=== PATIENT | male | born 1980 | race Caucasian/White ===

== ENCOUNTER 2016-10-13 16:16 | Inpatient (IN) | payer OTHER ==
[2016-10-13 19:24] VITALS: BMI 117.6
--- NOTE | 2016-10-13 19:49 | HP ---
CIWA Score - CIWA Score Nausea/Vomitin-Mild Nausea/No Vomiting Muscle Tremors: 4-Moderate,w/Arms Extend Anxiety: 4-Mod. Anxious/Guarded Agitation: 4-Moderately Restless Paroxysmal Sweats: 2 Orientation: 1-Uncertain about Date Tacttile Disturbances: 0-None Auditory Disturbances: 0-None Visual Disturbances: 0-None Headache: 0-None Present CIWA-Ar Total Score: 16 Admission ROS BHS - HPI Chief Complaint: WITHDRAWAL SX LEFT LEG CHRONIC CELLULITIS, MULTIPLE TREATMENT WITH VANCROMYCINE CLINDAMYCIN HAD DOPLOR BOTH LEG NEGATIVE CLOT RECOMMEND FOLLOW UP WITH VASCULAR SPECIALIST, COMPRESSION SOCKS AND ELEVATION RESTING Allergies/Adverse Reactions: Allergies Allergy/AdvReac Type Severity Reaction Status Date / Time Penicillins Allergy Severe Verified 02/13/16 20:13 History of Present Illness: 36 YEARS OLD MALE WITH LONG HISTORY OF ALCOHOL NICOTINE DEPENDENCE HAD GERD AND ANXIETY IS ADMITTED TO DETOX Exam Limitations: No Limitations - Ebola screening Have you traveled outside of the country in the last 21 days: No Have you had contact with anyone from an Ebola affected area: No Have you been sick,other than usual withdrawal symptoms: No Do you have a fever: No - Review of Systems Constitutional: Chills, Changes in sleep EENT: reports: No Symptoms Reported Respiratory: reports: Cough Cardiac: reports: No Symptoms Reported GI: reports: Nausea, Poor Fluid Intake, Indigestion, Abdominal cramping : reports: No Symptoms Reported Musculoskeletal: reports: Joint Pain (RIGHT ANKLE S/P FX 2012) Integumentary: reports: Erythema (LEFT LOWER LEG) Neuro: reports: Tremors Endocrine: reports: No Symptoms Reported Hematology: reports: No Symptoms Reported Psychiatric: reports: Judgement Intact, Depressed Other Systems: Reviewed and Negative Patient History - Patient Medical History Hx Anemia: Yes (BY HISTORY) Hx Asthma: No Hx Chronic Obstructive Pulmonary Disease (COPD): No Hx Cancer: No Hx Cardiac Disorders: No Hx Congestive Heart Failure: No Hx Hypertension: No Hx Hypercholesterolemia: No Hx Pacemaker: No HX Cerebrovascular Accident: No Hx Seizures: No Hx Dementia: No Hx Diabetes: No Hx Gastrointestinal Disorders: Yes Hx Liver Disease: No Hx Genitourinary Disorders: No Hx Sexually Transmitted Disorders: No Hx Renal Disease (ESRD): No Hx Thyroid Disease: No Hx Human Immunodeficiency Virus (HIV): No (negative) Hx Hepatitis C: No Hx Depression: Yes Hx Suicide Attempt: No Hx Bipolar Disorder: No Hx Schizophrenia: No - Patient Surgical History Past Surgical History: Yes Hx Neurologic Surgery: No Hx Cataract Extraction: No Hx Cardiac Surgery: No Hx Lung Surgery: No Hx Breast Surgery: No Hx Breast Biopsy: No Hx Abdominal Surgery: No Hx Appendectomy: No Hx Cholecystectomy: No Hx Genitourinary Surgery: No Hx Orthopedic Surgery: Yes (surgery of left wrist in 2010) Other Surgical History: RIGHT ANKLE 2013 Anesthesia Reaction: No - PPD History Previous Implant?: Yes Documented Results: Negative w/proof Implanted On Prior R Admission?: Yes Date: 03/11/15 Results: 0MM PPD to be Administered?: Yes - Smoking Cessation Smoking history: Current every day smoker Have you smoked in the past 12 months: Yes Aproximately how many cigarettes per day: 10 Cigars Per Day: 0 Hx Chewing Tobacco Use: No Initiated information on smoking cessation: Yes 'Breaking Loose' booklet given: 10/13/16 - Substance & Tx. History Hx Alcohol Use: Yes Hx Substance Use: No Substance Use Type: Alcohol, Marijuana Hx Substance Use Treatment: Yes - Substances Abused Alcohol Route: Oral Frequency: Daily Amount used: 12OZ X 30 BEER Age of first use: 11 Date of Last Use: 10/13/16 Family Disease History - Family Disease History Family Disease History: Diabetes: Father, Heart Disease: Grandparent, Mother, [place] : Grandparent Admission Physical Exam S - Vital Signs Vital Signs: Vital Signs - 24 hr 10/13/16 19:23 Temperature 98.5 F Pulse Rate 112 H Respiratory 20 Rate Blood Pressure 159/104 - Physical General Appearance: Yes: Appropriately Dressed, Moderate Distress, Obese, Tremorous, Irritable, Sweating, Anxious HEENTM: Yes: Hearing grossly Normal, Normal ENT Inspection, Normocephalic, Normal Voice Respiratory: Yes: Chest Non-Tender, Lungs Clear, Normal Breath Sounds, No Respiratory Distress, No Accessory Muscle Use Neck: Yes: Supple, Trachea in good position Breast: Yes: Breasts Symetrical Cardiology: Yes: Regular Rhythm, S1, S2, Tachycardia Abdominal: Yes: Non Tender, Soft Genitourinary: Yes: Within Normal Limits Back: Yes: Normal Inspection Musculoskeletal: Yes: full range of Motion, Gait Steady, Joint swelling (LEFT CALF), Muscle Pain (RIGHT ANKLE + LEFT LOWER LEG) Extremities: Yes: Non-Tender, Tremors, Swelling (LEFT CALF) Neurological: Yes: Alert, Normal Response, Depressed Affect Integumentary: Yes: Warm, Erythema (LEFT LOWER LEG) Lymphatic: Yes: Within Normal Limits - Diagnostic (1) Alcohol dependence with uncomplicated withdrawal Current Visit: Yes Status: Acute (2) Nicotine dependence Current Visit: Yes Status: Acute Qualifiers: Nicotine product type: cigarettes Substance use status: in withdrawal Qualified Code(s): F17.213 - Nicotine dependence, cigarettes, with withdrawal (3) GERD (gastroesophageal reflux disease) Current Visit: Yes Status: Acute Qualifiers: Esophagitis presence: without esophagitis Qualified Code(s): K21.9 - Gastro-esophageal reflux disease without esophagitis (4) Anxiety and depression Current Visit: Yes Status: Suspected (5) Chronic cellulitis Current Visit: Yes Status: Chronic Comment: ELEVATION RESTING Cleared for Admission [facility] - Detox or Rehab [facility] Level of Care: Medically Managed Detox Regimen/Protocol: Librium S Breath Alcohol Content Breath Alcohol Content: 0 Vital Signs - Weight Weight: 292 lb Urine Drug Screen - Results Drug Screen Negative: No Urine Drug Screen Results: THC-Marijuana, BZO-Benzodiazepines
[2016-10-13] MEDS ORDERED: P-EPHED 60MG/TRIPROLIDI 2.5MG TABLET PO PRN (19:57)
[2016-10-13] MEDS ORDERED: LOPERAMIDE HCL 2 MG CAPSULE PO PRN (19:57)
[2016-10-13] MEDS ORDERED: chlordiazePOXIDE HCL 25 MG CAPSULE PO PRN (19:57)
[2016-10-13] MEDS ORDERED: chlordiazePOXIDE HCL 25 MG CAPSULE PO ONE (19:57)
[2016-10-13] MEDS ORDERED: MAGNESIUM HYDROX 2400MG/30ML ORAL SUSPENSION 30 ML CUP PO PRN (19:57)
[2016-10-13] MEDS ORDERED: NICOTINE POLACRILEX 2 MG GUM BC PRN (19:57)
[2016-10-13] MEDS ORDERED: MENTHOL/PHENOL 1 EACH UD MM PRN (19:57)
[2016-10-13] MEDS ORDERED: ACETAMINOPHEN 325 MG TABLET (FP) PO PRN (19:57)
[2016-10-13] MEDS ORDERED: MAG HYDROX/AL HYDROX/SIMETH 30 ML UNIT-DOSE CUP PO PRN (19:57)
[2016-10-13] MEDS ORDERED: hydrOXYzine PAMOATE 50 MG CAPSULE (FP) PO PRN (19:57)
[2016-10-13] MEDS ORDERED: MAGNESIUM CITRATE 300 ML BOTTLE PO PRN (19:57)
[2016-10-13] MEDS ORDERED: guaiFENesin/D-METHORPHAN HB 10 ML UNIT-DOSE CUPS PO PRN (19:57)
[2016-10-13] MEDS ORDERED: cloNIDine HCL 0.1 MG TABLET PO PRN (20:00)
[2016-10-13] MEDS ORDERED: CYCLOBENZAPRINE HCL 10 MG TABLET (FP) PO PRN (20:00)
[2016-10-13] MEDS: THIAMINE HCL 100 MG TABLET (FP) PO SCH (21:42)
[2016-10-13] MEDS: RANITIDINE HCL 150 MG TABLET (FP) PO SCH (21:42)
[2016-10-13] MEDS: diphenhydrAMINE HCL 50 MG CAPSULE PO PRN (21:47)
[2016-10-13] MEDS: chlordiazePOXIDE HCL 25 MG CAPSULE PO SCH (22:47)
[2016-10-13 23:12] LABS: URINE APPEARANCE CLEAR; URINE BILIRUBIN NEGATIVE (NEGATIVE); URINE BLOOD NEGATIVE (NEGATIVE); URINE COLOR LTYELLOW; URINE GLUCOSE (UA) NEGATIVE (NEGATIVE); URINE KETONE NEGATIVE (NEGATIVE); URINE LEUK ESTERASE NEGATIVE (NEGATIVE); URINE NITRITE NEGATIVE (NEGATIVE); URINE PROTEIN NEGATIVE (NEGATIVE); URINE UROBILINOGEN NEGATIVE E.U./dl (0.2-1.0)
[2016-10-14] MEDS: chlordiazePOXIDE HCL 25 MG CAPSULE PO SCH (06:48)
[2016-10-14] MEDS ORDERED: diazePAM 5 MG TABLET PO ONE (09:47)
--- NOTE | 2016-10-14 10:04 | PN ---
[facility] CIWA - CIWA Score Nausea/Vomitin-No Nausea/No Vomiting Muscle Tremors: 4-Moderate,w/Arms Extend Anxiety: 4-Mod. Anxious/Guarded Agitation: 4-Moderately Restless Paroxysmal Sweats: 2 Orientation: 0-Oriented Tacttile Disturbances: 3-Moderate Itch/Numb/Burn Auditory Disturbances: 0-None Visual Disturbances: 0-None Headache: 0-None Present CIWA-Ar Total Score: 17 BHS Progress Note (SOAP) Subjective: ANXIETY,SWEATS,TREMORS. DECLINED LIBRIUM DUE TO MOUTH IRRITATION FROM OPEN CAPSULE. PT HAS RECENT RX CLINDAMYCIN ON 10/13/16 FOR CHRONIC CELLULITIS OF LOWER LEG BUT DID NOT BRING IT HERE WITH HIM. Objective: 10/14/16 10:03 Vital Signs Temperature 96.2 F L 10/14/16 10:00 Pulse Rate 91 H 10/14/16 10:00 Respiratory Rate 18 10/14/16 10:00 Blood Pressure 155/96 10/14/16 10:00 O2 Sat by Pulse Oximetry (%) Laboratory Last Values Urine Color Ltyellow 10/13/16 22:50 Urine Appearance Clear 10/13/16 22:50 Urine pH 5.0 (5.0-8.0) 10/13/16 22:50 Ur Specific [place] 1.015 (1.001-1.035) 10/13/16 22:50 Urine Protein Negative (NEGATIVE) 10/13/16 22:50 Urine Glucose (UA) Negative (NEGATIVE) 10/13/16 22:50 Urine Ketones Negative (NEGATIVE) 10/13/16 22:50 Urine Blood Negative (NEGATIVE) 10/13/16 22:50 Urine Nitrite Negative (NEGATIVE) 10/13/16 22:50 Urine Bilirubin Negative (NEGATIVE) 10/13/16 22:50 Urine Urobilinogen Negative E.U./dl (0.2-1.0) 10/13/16 22:50 Ur Leukocyte Esterase Negative (NEGATIVE) 10/13/16 22:50 Assessment: 10/14/16 10:03 WITHDRAWAL SX Plan: CONTINUE DETOX CHANGE PROTOCOL TO VALIUM REGIMEN CONTINUE CLINDAMYCIN DIRECTED
[2016-10-14 10:37] LABS: MCH 27.9 pg (25.7-33.7); MCHC 33.2 g/dl (32.0-35.9); MEAN CELL VOLUME 84.1 fl (80-96); MEAN PLT VOLUME 8.6 fl (7.5-11.1); PLATELET COUNT 271 K/MM3 (134-434); RDW 13.6 % (11.9-15.9); WHITE BLOOD COUNT 4.7 K/mm3 (4.0-10.0)
[2016-10-14] MEDS: RANITIDINE HCL 150 MG TABLET (FP) PO SCH ×2 (10:42→22:30)
[2016-10-14] MEDS: PRENATAL VITAMINS W/ FOLIC ACID TABLET (FP) PO SCH (10:42)
[2016-10-14 10:44] LABS: ALBUMIN 3.1 g/dl (3.4-5.0); ALK PHOS 108 U/L (45-117); ANION GAP 8 (8-16); BILIRUBIN,TOTAL 0.5 mg/dL (0.2-1.0); CALCIUM 8.5 mg/dL (8.5-10.1); CO2 31 mmol/L (21-32); GLUCOSE,RANDOM 129 mg/dL (74-106); SGOT/AST 75 U/L (15-37); SGPT/ALT 109 U/L (12-78); TOT PROT 6.3 g/dl (6.4-8.2)
[2016-10-14] MEDS: NICOTINE 14 MG/24 HOURS TOPICAL PATCH TD SCH (10:45)
[2016-10-14 11:03] LABS: HIV 1 & 2 AB NEGATIVE; HIV 1 AGp24 NEGATIVE
--- NOTE | 2016-10-14 11:03 | CONSULT ---
[facility] Psychiatric Consult - Data Date of interview: 10/14/16 Admission source: [facility] Identifying data: Readmission to [facility] for this 36 y/o male seeking detox treatment on for detox treatment for alcohol, benzodiazepine (xanax) and marijuana dependence.Patient is single witout children,homeless,unemployed and aupported on food stamps. Substance Abuse History: - Smoking Cessation. Smoking history: Current every day smoker. Have you smoked in the past 12 months: Yes. Aproximately how many cigarettes per day: 10. Cigars Per Day: 0. Hx Chewing Tobacco Use: No. Initiated information on smoking cessation: Yes. 'Breaking Loose' booklet given : 10/13/16. - Substance & Tx. History. Hx Alcohol Use: Yes. Hx Substance Use : No. Substance Use Type: Alcohol, Marijuana. Hx Substance Use Treatment: Yes. - Substances Abused. Alcohol. Route: Oral. Frequency: Daily. Amount used: 12OZ X 30 BEER. Age of first use: 11. Date of Last Use: . Confirmed by patient in this session. Medical History: Obesity,GERD,cellulitis of left leg and anemia.History of surgery for fracture of left wrist (2009) and right ankle (2012).Noted self- report of an accidental overdose with heroin/alcohol about a year ago (nine days on the medical duffy).Patient reports allergy to Penicillin. Psychiatric History: Patient admits to one psychiatric hospitalization at the [facility] in [place] (2001).Diagnosed with Bipolar Disorder (patient disagrees).Mr Ledezma states that he stopped taking medications (gabapentin) immediately after his discharge.No history of OPD care.Patient denies history of suicide attempts.It appears that the patient's mother is diagnosed with Bipolar Disorder. Physical/Sexual Abuse/Trauma History: Patient denies. Additional Comment: Urine Drug Screen Results: THC-Marijuana, BZO- Benzodiazepines.Noted. Mental Status Exam - Mental Status Exam Alert and Oriented to: Time, Place, Person Cognitive Function: Good Patient Appearance: Well Groomed Mood: Hopeful, Euthymic Affect: Appropriate, Normal Range Patient Behavior: Fatigued, Appropriate, Cooperative Speech Pattern: Clear, Appropriate Voice Loudness: Normal Thought Process: Goal Oriented Thought Disorder: Not Present Hallucinations: Denies Suicidal Ideation: Denies Homicidal Ideation: Denies Insight/Judgement: Poor Sleep: Poorly, Difficulty falling asleep Appetite: Good Muscle strength/Tone: Normal Gait/Station: Normal Psychiatric Findings - Problem List ([place] 1, 2,3) (1) Alcohol dependence with uncomplicated withdrawal Current Visit: Yes Status: Acute (2) Cannabis dependence Current Visit: Yes Status: Acute (3) Nicotine dependence Current Visit: Yes Status: Acute Qualifiers: Nicotine product type: cigarettes Substance use status: in withdrawal Qualified Code(s): F17.213 - Nicotine dependence, cigarettes, with withdrawal (4) Chronic cellulitis Current Visit: Yes Status: Acute Comment: ELEVATION RESTING (5) 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
--- NOTE | 2016-10-14 11:06 | EKG ---
Test Reason : Blood Pressure : / mmHG Vent. Rate : 099 BPM Atrial Rate : 099 BPM P-R Int : 148 ms QRS Dur : 076 ms QT Int : 344 ms P-R-T Axes : 050 049 028 degrees QTc Int : 441 ms NORMAL SINUS RHYTHM POSSIBLE LEFT ATRIAL ENLARGEMENT BORDERLINE ECG NO PREVIOUS ECGS AVAILABLE Confirmed by GLO MURILLO, KHUSHI ([id number]) on 10/14/2016 11:06:33 AM Referred By: Edmond Lerner Confirmed By:KHUSHI CODY MD
[2016-10-14] MEDS: CLINDAMYCIN HCL 150 MG CAPSULE (FP) PO SCH ×2 (11:54→22:31)
[2016-10-14] MEDS: NAPROXEN 500 MG TABLET (FP) PO PRN ×2 (11:56→22:45)
[2016-10-14] MEDS: diazePAM 5 MG TABLET PO SCH ×2 (14:17→22:30)
[2016-10-14] MEDS: CYCLOBENZAPRINE HCL 10 MG TABLET (FP) PO SCH ×2 (14:18→22:30)
[2016-10-14] MEDS: THIAMINE HCL 100 MG TABLET (FP) PO SCH (22:30)
[2016-10-14] MEDS: diphenhydrAMINE HCL 50 MG CAPSULE PO PRN (22:31)
[2016-10-14] MEDS ORDERED: chlordiazePOXIDE HCL 25 MG CAPSULE PO SCH (23:00)
[2016-10-15] MEDS: diazePAM 5 MG TABLET PO SCH ×3 (06:13→22:15)
[2016-10-15] MEDS: CYCLOBENZAPRINE HCL 10 MG TABLET (FP) PO SCH ×3 (06:13→22:16)
[2016-10-15] MEDS: NAPROXEN 500 MG TABLET (FP) PO PRN ×2 (10:55→22:16)
[2016-10-15] MEDS: PRENATAL VITAMINS W/ FOLIC ACID TABLET (FP) PO SCH (10:55)
[2016-10-15] MEDS: diazePAM 5 MG TABLET PO PRN ×2 (10:55→18:28)
[2016-10-15] MEDS: RANITIDINE HCL 150 MG TABLET (FP) PO SCH ×2 (10:55→22:16)
[2016-10-15] MEDS: NICOTINE 14 MG/24 HOURS TOPICAL PATCH TD SCH (10:58)
[2016-10-15] MEDS: CLINDAMYCIN HCL 150 MG CAPSULE (FP) PO SCH ×2 (10:58→22:15)
--- NOTE | 2016-10-15 14:51 | PN ---
S CIWA - CIWA Score Nausea/Vomitin-No Nausea/No Vomiting Muscle Tremors: 4-Moderate,w/Arms Extend Anxiety: 4-Mod. Anxious/Guarded Agitation: 3 Paroxysmal Sweats: 3 Orientation: 0-Oriented Tacttile Disturbances: 0-None Auditory Disturbances: 0-None Visual Disturbances: 0-None Headache: 0-None Present CIWA-Ar Total Score: 14 BHS Progress Note (SOAP) Subjective: Anxiety,tremors,sweating,interrupted sleep,restless. Objective: 10/15/16 14:50 Vital Signs - 8 hr 10/15/16 10/15/16 10:54 13:27 Temperature 97.6 F 96.9 F L Pulse Rate 73 92 H Respiratory 18 18 Rate Blood Pressure 135/91 137/83 Laboratory Tests 10/13/16 10/13/16 10/14/16 07:00 22:50 07:00 WBC 4.7 D RBC 4.30 Hgb 12.0 D Hct 36.2 D MCV 84.1 MCHC 33.2 RDW 13.6 Plt Count 271 MPV 8.6 Sodium Potassium Chloride Carbon Dioxide Anion Gap BUN Creatinine Creat Clearance w eGFR Random Glucose Calcium Total Bilirubin AST ALT Alkaline Phosphatase Total Protein Albumin Urine Color Ltyellow Urine Appearance Clear Urine pH 5.0 Ur Specific [place] 1.015 Urine Protein Negative Urine Glucose (UA) Negative Urine Ketones Negative Urine Blood Negative Urine Nitrite Negative Urine Bilirubin Negative Urine Urobilinogen Negative Ur Leukocyte Esterase Negative RPR Titer Hepatitis C Antibody <0.1 HIV 1&2 Antibody Screen HIV P24 Antigen 10/14/16 10/14/16 10/14/16 07:00 07:00 07:00 WBC RBC Hgb Hct MCV MCHC RDW Plt Count MPV Sodium 143 Potassium 3.8 Chloride 104 Carbon Dioxide 31 D Anion Gap 8 BUN 10 D Creatinine 1.0 Creat Clearance w eGFR > 60 Random Glucose 129 H Calcium 8.5 Total Bilirubin 0.5 D AST 75 H D ALT 109 H Alkaline Phosphatase 108 Total Protein 6.3 L Albumin 3.1 L Urine Color Urine Appearance Urine pH Ur Specific [place] Urine Protein Urine Glucose (UA) Urine Ketones Urine Blood Urine Nitrite Urine Bilirubin Urine Urobilinogen Ur Leukocyte Esterase RPR Titer Nonreactive Hepatitis C Antibody HIV 1&2 Antibody Screen Negative HIV P24 Antigen Negative labs noted Assessment: 10/15/16 14:50 Withdrawal sx. Plan: Continue detox
[2016-10-15] MEDS ORDERED: ZOLPIDEM TARTRATE 10 MG TABLET (PARK CARE ONLY) PO PRN (22:00)
[2016-10-15] MEDS: THIAMINE HCL 100 MG TABLET (FP) PO SCH (22:15)
[2016-10-15] MEDS ORDERED: chlordiazePOXIDE 5 MG CAPSULE PO SCH (23:00)
[2016-10-16] MEDS: CYCLOBENZAPRINE HCL 10 MG TABLET (FP) PO SCH ×2 (05:23→06:42)
[2016-10-16] MEDS: diazePAM 5 MG TABLET PO PRN (06:41)
[2016-10-16] MEDS ORDERED: diazePAM 5 MG TABLET PO SCH (10:00)
[2016-10-16] MEDS: CLINDAMYCIN HCL 150 MG CAPSULE (FP) PO SCH (10:45)
--- NOTE | 2016-10-16 10:45 | PN ---
BHS Progress Note (SOAP) Subjective: Sweating,interrupted sleep,restless Objective: 10/16/16 10:44 Vital Signs - 8 hr 10/16/16 10/16/16 03:30 07:05 Temperature 97.2 F L Pulse Rate 84 Respiratory 18 20 Rate Blood Pressure 103/64 Laboratory Last Values WBC 4.7 K/mm3 (4.0-10.0) D 10/14/16 07:00 RBC 4.30 M/mm3 (4.00-5.60) 10/14/16 07:00 Hgb 12.0 GM/dL (11.7-16.9) D 10/14/16 07:00 Hct 36.2 % (35.4-49) D 10/14/16 07:00 MCV 84.1 fl (80-96) 10/14/16 07:00 MCHC 33.2 g/dl (32.0-35.9) 10/14/16 07:00 RDW 13.6 % (11.9-15.9) 10/14/16 07:00 Plt Count 271 K/MM3 (134-434) 10/14/16 07:00 MPV 8.6 fl (7.5-11.1) 10/14/16 07:00 Sodium 143 mmol/L (136-145) 10/14/16 07:00 Potassium 3.8 mmol/L (3.5-5.1) 10/14/16 07:00 Chloride 104 mmol/L (98-107) 10/14/16 07:00 Carbon Dioxide 31 mmol/L (21-32) D 10/14/16 07:00 Anion Gap 8 (8-16) 10/14/16 07:00 BUN 10 mg/dL (7-18) D 10/14/16 07:00 Creatinine 1.0 mg/dL (0.7-1.3) 10/14/16 07:00 Creat Clearance w eGFR > 60 (>60) 10/14/16 07:00 Random Glucose 129 mg/dL (74-106) H 10/14/16 07:00 Calcium 8.5 mg/dL (8.5-10.1) 10/14/16 07:00 Total Bilirubin 0.5 mg/dL (0.2-1.0) D 10/14/16 07:00 AST 75 U/L (15-37) H D 10/14/16 07:00 ALT 109 U/L (12-78) H 10/14/16 07:00 Alkaline Phosphatase 108 U/L (45-117) 10/14/16 07:00 Total Protein 6.3 g/dl (6.4-8.2) L 10/14/16 07:00 Albumin 3.1 g/dl (3.4-5.0) L 10/14/16 07:00 Urine Color Ltyellow 10/13/16 22:50 Urine Appearance Clear 10/13/16 22:50 Urine pH 5.0 (5.0-8.0) 10/13/16 22:50 Ur Specific [place] 1.015 (1.001-1.035) 10/13/16 22:50 Urine Protein Negative (NEGATIVE) 10/13/16 22:50 Urine Glucose (UA) Negative (NEGATIVE) 10/13/16 22:50 Urine Ketones Negative (NEGATIVE) 10/13/16 22:50 Urine Blood Negative (NEGATIVE) 10/13/16 22:50 Urine Nitrite Negative (NEGATIVE) 10/13/16 22:50 Urine Bilirubin Negative (NEGATIVE) 10/13/16 22:50 Urine Urobilinogen Negative E.U./dl (0.2-1.0) 10/13/16 22:50 Ur Leukocyte Esterase Negative (NEGATIVE) 10/13/16 22:50 RPR Titer Nonreactive (NONREACTIVE) 10/14/16 07:00 Hepatitis C Antibody <0.1 s/co ratio (0.0-0.9) 10/13/16 07:00 HIV 1&2 Antibody Screen Negative 10/14/16 07:00 HIV P24 Antigen Negative 10/14/16 07:00 labs noted Assessment: 10/16/16 10:44 Withdrawal sx. Plan: Continue detox
[2016-10-16] MEDS: RANITIDINE HCL 150 MG TABLET (FP) PO SCH (10:46)
[2016-10-16] MEDS: PRENATAL VITAMINS W/ FOLIC ACID TABLET (FP) PO SCH (10:46)
[2016-10-16] MEDS: NICOTINE 14 MG/24 HOURS TOPICAL PATCH TD SCH (10:46)
[2016-10-16 10:56] VITALS: BP 134/83; PULSE 90; TEMP 90
--- NOTE | 2016-10-16 15:14 | DS ---
[facility] Detox Discharge Summary Admission Date: 10/13/16 Discharge Date: 10/16/16 - History Present History: Alcohol Dependence, Cannabis Dependence Pertinent Past History: GERD Chronic Cellulitis - Physical Exam Results Vital Signs: Vital Signs Temperature 90 F L 10/16/16 10:56 Pulse Rate 90 10/16/16 10:56 Respiratory Rate 20 10/16/16 10:56 Blood Pressure 134/83 10/16/16 10:56 O2 Sat by Pulse Oximetry (%) Pertinent Admission Physical Exam Findings: Withdrawal sx. Laboratory Last Values WBC 4.7 K/mm3 (4.0-10.0) D 10/14/16 07:00 RBC 4.30 M/mm3 (4.00-5.60) 10/14/16 07:00 Hgb 12.0 GM/dL (11.7-16.9) D 10/14/16 07:00 Hct 36.2 % (35.4-49) D 10/14/16 07:00 MCV 84.1 fl (80-96) 10/14/16 07:00 MCHC 33.2 g/dl (32.0-35.9) 10/14/16 07:00 RDW 13.6 % (11.9-15.9) 10/14/16 07:00 Plt Count 271 K/MM3 (134-434) 10/14/16 07:00 MPV 8.6 fl (7.5-11.1) 10/14/16 07:00 Sodium 143 mmol/L (136-145) 10/14/16 07:00 Potassium 3.8 mmol/L (3.5-5.1) 10/14/16 07:00 Chloride 104 mmol/L (98-107) 10/14/16 07:00 Carbon Dioxide 31 mmol/L (21-32) D 10/14/16 07:00 Anion Gap 8 (8-16) 10/14/16 07:00 BUN 10 mg/dL (7-18) D 10/14/16 07:00 Creatinine 1.0 mg/dL (0.7-1.3) 10/14/16 07:00 Creat Clearance w eGFR > 60 (>60) 10/14/16 07:00 Random Glucose 129 mg/dL (74-106) H 10/14/16 07:00 Calcium 8.5 mg/dL (8.5-10.1) 10/14/16 07:00 Total Bilirubin 0.5 mg/dL (0.2-1.0) D 10/14/16 07:00 AST 75 U/L (15-37) H D 10/14/16 07:00 ALT 109 U/L (12-78) H 10/14/16 07:00 Alkaline Phosphatase 108 U/L (45-117) 10/14/16 07:00 Total Protein 6.3 g/dl (6.4-8.2) L 10/14/16 07:00 Albumin 3.1 g/dl (3.4-5.0) L 10/14/16 07:00 Urine Color Ltyellow 10/13/16 22:50 Urine Appearance Clear 10/13/16 22:50 Urine pH 5.0 (5.0-8.0) 10/13/16 22:50 Ur Specific [place] 1.015 (1.001-1.035) 10/13/16 22:50 Urine Protein Negative (NEGATIVE) 10/13/16 22:50 Urine Glucose (UA) Negative (NEGATIVE) 10/13/16 22:50 Urine Ketones Negative (NEGATIVE) 10/13/16 22:50 Urine Blood Negative (NEGATIVE) 10/13/16 22:50 Urine Nitrite Negative (NEGATIVE) 10/13/16 22:50 Urine Bilirubin Negative (NEGATIVE) 10/13/16 22:50 Urine Urobilinogen Negative E.U./dl (0.2-1.0) 10/13/16 22:50 Ur Leukocyte Esterase Negative (NEGATIVE) 10/13/16 22:50 RPR Titer Nonreactive (NONREACTIVE) 10/14/16 07:00 Hepatitis C Antibody <0.1 s/co ratio (0.0-0.9) 10/13/16 07:00 HIV 1&2 Antibody Screen Negative 10/14/16 07:00 HIV P24 Antigen Negative 10/14/16 07:00 labs noted - Treatment Hospital Course: Rehab Referral Accepted Patient has Accepted a Rehab Referral to: [facility] addiction treatment [place], [place] - Medication Discharge Medications: Ambulatory Orders Clindamycin HCl 600 mg PO BID 10/14/16 - Diagnosis (1) Alcohol dependence with uncomplicated withdrawal Status: Acute (2) Cannabis dependence Status: Acute (3) Chronic cellulitis Status: Acute (4) Nicotine dependence Status: Acute Qualifiers: Nicotine product type: cigarettes Substance use status: in withdrawal Qualified Code(s): F17.213 - Nicotine dependence, cigarettes, with withdrawal (5) GERD (gastroesophageal reflux disease) Status: Chronic Qualifiers: Esophagitis presence: without esophagitis Qualified Code(s): K21.9 - Gastro-esophageal reflux disease without esophagitis - AMA Did Patient Leave Against Medical Advice: Yes
[2016-10-16] MEDS ORDERED: chlordiazePOXIDE HCL 10 MG CAPSULE PO SCH (23:00)
[2016-10-18] MEDS ORDERED: diazePAM 5 MG TABLET PO SCH (10:00)
== END 2016-10-16 12:10 | disposition left against medical advice (07) | DRG 770 ==
LOC: YASAS 16:16 → Y3N 20:52
PROVIDERS: ADMIT Internal Medicine; ATTEND Internal Medicine
PROC: HZ2ZZZZ Detoxification Services for Substance Abuse Treatment (ICD-10-PCS; principal; 2016-10-16)
DX: F10.230 Alcohol dependence with withdrawal, uncomplicated (principal); F12.20 Cannabis dependence, uncomplicated; F17.213 Nicotine dependence, cigarettes, with withdrawal; F41.8 Other specified anxiety disorders; L03.116 Cellulitis of left lower limb
CPT/HCPCS: 36415; 80053; 81003; 85027; 86593; 87389; 93005; 93010

== ENCOUNTER 2016-11-26 13:27 | Inpatient (IN) | payer OTHER ==
[2016-11-26 14:07] VITALS: BMI 38.5
--- NOTE | 2016-11-26 16:17 | HP ---
CIWA Score - CIWA Score Nausea/Vomitin Muscle Tremors: 4-Moderate,w/Arms Extend Anxiety: 4-Mod. Anxious/Guarded Agitation: 4-Moderately Restless Paroxysmal Sweats: 3 Orientation: 1-Uncertain about Date Tacttile Disturbances: 0-None Auditory Disturbances: 0-None Visual Disturbances: 0-None Headache: 0-None Present CIWA-Ar Total Score: 19 Admission ROS BHS - HPI Chief Complaint: Withdrawal sx. Allergies/Adverse Reactions: Allergies Allergy/AdvReac Type Severity Reaction Status Date / Time Penicillins Allergy Severe Hives Verified 10/13/16 21:13 History of Present Illness: 36 y/o man with a long hx of drug & alcohol dependence is admitted for detox.Pt. has been in previous detox,reports two yrs. sobriety.Recently enrolled in [facility]. Exam Limitations: No Limitations - Ebola screening Have you traveled outside of the country in the last 21 days: No Have you had contact with anyone from an Ebola affected area: No Have you been sick,other than usual withdrawal symptoms: No Do you have a fever: No - Review of Systems Constitutional: Diaphoresis EENT: reports: No Symptoms Reported Respiratory: reports: No Symptoms reported Cardiac: reports: No Symptoms Reported GI: reports: Diarrhea, Abdominal cramping : reports: No Symptoms Reported Musculoskeletal: reports: No Symptoms Reported Integumentary: reports: Sweating Neuro: reports: Tremors Endocrine: reports: No Symptoms Reported Hematology: reports: No Symptoms Reported Psychiatric: reports: No Sypmtoms Reported Other Systems: Reviewed and Negative Patient History - Patient Medical History Hx Anemia: Yes (BY HISTORY) Hx Asthma: No Hx Chronic Obstructive Pulmonary Disease (COPD): No Hx Cancer: No Hx Cardiac Disorders: No Hx Congestive Heart Failure: No Hx Hypertension: No Hx Hypercholesterolemia: No Hx Pacemaker: No HX Cerebrovascular Accident: No Hx Seizures: No Hx Dementia: No Hx Diabetes: No Hx Gastrointestinal Disorders: No Hx Liver Disease: No Hx Genitourinary Disorders: No Hx Sexually Transmitted Disorders: No Hx Renal Disease (ESRD): No Hx Thyroid Disease: No Hx Human Immunodeficiency Virus (HIV): No (negative) Hx Hepatitis C: No Hx Depression: No Hx Suicide Attempt: No Hx Bipolar Disorder: No Hx Schizophrenia: No Other Medical History: 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 - Patient Surgical History Past Surgical History: Yes Hx Neurologic Surgery: No Hx Cataract Extraction: No Hx Cardiac Surgery: No Hx Lung Surgery: No Hx Breast Surgery: No Hx Breast Biopsy: No Hx Abdominal Surgery: No Hx Appendectomy: No Hx Cholecystectomy: No Hx Genitourinary Surgery: No Hx Section: No Hx Orthopedic Surgery: Yes (surgery of left wrist in 2010) Other Surgical History: Fracture RIGHT ANKLE Anesthesia Reaction: No - PPD History Previous Implant?: Yes Documented Results: Negative w/proof Implanted On Prior [facility] Admission?: Yes Date: 10/15/16 Results: 0MM PPD to be Administered?: No - Smoking Cessation Smoking history: Current every day smoker Have you smoked in the past 12 months: Yes Aproximately how many cigarettes per day: 10 Cigars Per Day: 0 Hx Chewing Tobacco Use: No Initiated information on smoking cessation: Yes 'Breaking Loose' booklet given: 11/26/16 - Substance & Tx. History Hx Alcohol Use: Yes Hx Substance Use: Yes Substance Use Type: Alcohol, Tranquilizers Hx Substance Use Treatment: Yes (detox & rehab) - Substances Abused Alcohol Route: Oral Frequency: Daily Amount used: Beer 4-5(6packs) Age of first use: 11 Date of Last Use: 11/26/16 Alprazolam (Xanax) Route: Oral Frequency: Daily Amount used: 10mg Age of first use: 21 Date of Last Use: 11/25/16 Family Disease History - Family Disease History Family Disease History: Diabetes: Father, Heart Disease: Grandparent, Mother, CA : Grandparent Admission Physical Exam BHS - Vital Signs Vital Signs: Vital Signs - 24 hr 11/26/16 14:04 Temperature 98.6 F Pulse Rate 110 H Respiratory 18 Rate Blood Pressure 169/98 - Physical General Appearance: Yes: Tremorous, Sweating, Anxious HEENTM: Yes: Within Normal Limits Respiratory: Yes: Chest Non-Tender, Lungs Clear, Normal Breath Sounds Neck: Yes: Supple Breast: Yes: Breast Exam Deferred Cardiology: Yes: Regular Rhythm, Regular Rate, S1, S2 Abdominal: Yes: Normal Bowel Sounds, Non Tender, Soft Genitourinary: Yes: Within Normal Limits Back: Yes: Within Normal Limits Musculoskeletal: Yes: Joint swelling (Deformity Rt. ankle with chronic skin changes left ankle) Extremities: Yes: Tremors, Swelling (deformity rt. ankle,old fracture not properly treated), Erythema (both ankles) Neurological: Yes: Fully Oriented, Alert Integumentary: Yes: Diaphoresis Lymphatic: Yes: Within Normal Limits - Diagnostic (1) Alcohol dependence with uncomplicated withdrawal Current Visit: Yes Status: Acute (2) Cannabis dependence Current Visit: Yes Status: Acute (3) Nicotine dependence Current Visit: Yes Status: Acute Qualifiers: Nicotine product type: cigarettes Substance use status: in withdrawal Qualified Code(s): F17.213 - Nicotine dependence, cigarettes, with withdrawal (4) GERD (gastroesophageal reflux disease) Current Visit: Yes Status: Chronic Qualifiers: Esophagitis presence: without esophagitis Qualified Code(s): K21.9 - Gastro-esophageal reflux disease without esophagitis (5) Right ankle joint deformity Current Visit: Yes Status: Chronic (6) Opioid dependence on agonist therapy Current Visit: Yes Status: Acute Cleared for Admission S - Detox or Rehab [facility] Level of Care: Medically Managed Detox Regimen/Protocol: Valium S Breath Alcohol Content Breath Alcohol Content: 0 Urine Drug Screen - Results Drug Screen Negative: No Urine Drug Screen Results: THC-Marijuana, BAR-Barbiturates, BZO-Benzodiazepines , MTD-Methadone, TCA-Tricyclic Antidepress
[2016-11-26] MEDS ORDERED: P-EPHED 60MG/TRIPROLIDI 2.5MG TABLET PO PRN (16:32)
[2016-11-26] MEDS ORDERED: NICOTINE POLACRILEX 2 MG GUM BC PRN (16:32)
[2016-11-26] MEDS ORDERED: diphenhydrAMINE HCL 50 MG CAPSULE PO PRN (16:32)
[2016-11-26] MEDS ORDERED: MAGNESIUM CITRATE 300 ML BOTTLE PO PRN (16:32)
[2016-11-26] MEDS ORDERED: guaiFENesin/D-METHORPHAN HB 10 ML UNIT-DOSE CUPS PO PRN (16:32)
[2016-11-26] MEDS ORDERED: MENTHOL/PHENOL 1 EACH UD MM PRN (16:32)
[2016-11-26] MEDS ORDERED: LOPERAMIDE HCL 2 MG CAPSULE PO PRN (16:32)
[2016-11-26] MEDS ORDERED: MAGNESIUM HYDROX 2400MG/30ML ORAL SUSPENSION 30 ML CUP PO PRN (16:32)
[2016-11-26] MEDS ORDERED: MAG HYDROX/AL HYDROX/SIMETH 30 ML UNIT-DOSE CUP PO PRN (16:32)
[2016-11-26] MEDS ORDERED: ACETAMINOPHEN 325 MG TABLET (FP) PO PRN (16:32)
[2016-11-26] MEDS ORDERED: diazePAM 5 MG TABLET PO ONE (17:45)
[2016-11-26] MEDS: NICOTINE 21 MG/24 HOURS TOPICAL PATCH TD SCH (19:09)
[2016-11-26] MEDS: THIAMINE HCL 100 MG TABLET (FP) PO SCH (22:35)
[2016-11-26] MEDS: diazePAM 5 MG TABLET PO SCH (22:35)
[2016-11-26] MEDS: TOLNAFTATE 1% CREAM 15 GM TUBE TP SCH (22:50)
[2016-11-27] MEDS: diazePAM 5 MG TABLET PO SCH ×3 (05:47→22:33)
--- NOTE | 2016-11-27 08:30 | CONSULT ---
[facility] Psychiatric Consult - Data Date of interview: 11/27/16 Admission source: [facility] Identifying data: This is 36 years opld obese male with no psychiatric hospitalization history intoxiocated wuth: Alcohol, Cannabis, Xanax, Opioids and Nicotine Substance Abuse History: - Smoking Cessation. Smoking history: Current every day smoker. Have you smoked in the past 12 months: Yes. Aproximately how many cigarettes per day: 10. Cigars Per Day: 0. Hx Chewing Tobacco Use: No. Initiated information on smoking cessation: Yes. 'Breaking Loose' booklet given : 11/26/16. - Substance & Tx. History. Hx Alcohol Use: Yes. Hx Substance Use : Yes. Substance Use Type: Alcohol, Tranquilizers. Hx Substance Use Treatment : Yes (detox & rehab). - Substances Abused. Alcohol. Route: Oral. Frequency: Daily. Amount used: Beer 4-5(6packs). Age of first use: 11. Date of Last Use: 11/26/16. Alprazolam (Xanax). Route: Oral. Frequency: Daily. Amount used: 10mg. Age of first use: 21. Date of Last Use: 11/25/16 Medical History: GERD, Right ankle injury, History of Cellulitis. Obesity Psychiatric History: Patient reports history of anxiety and depression, reports insomnia, reports taking prior to admission: Ambien 10mg po qhs Physical/Sexual Abuse/Trauma History: Denies Additional Comment: Ambien 10mg po qhs Mental Status Exam - Mental Status Exam Alert and Oriented to: Person Cognitive Function: Fair Patient Appearance: Unkempt Mood: Sad Patient Behavior: Cooperative Speech Pattern: Appropriate Voice Loudness: Normal Thought Process: Circumstantial, Goal Oriented Thought Disorder: Being Controlled Hallucinations: Denies Suicidal Ideation: Denies Homicidal Ideation: Denies Insight/Judgement: Fair Sleep: Difficulty falling asleep Appetite: Weight gain Muscle strength/Tone: Mild Hypotonicity Gait/Station: Normal Additional Comments: Ambien 10mg po qhs Psychiatric Findings - Problem List ([place] 1, 2,3) (1) Alcohol dependence with uncomplicated withdrawal Current Visit: Yes Status: Acute (2) Cannabis dependence Current Visit: Yes Status: Acute (3) Nicotine dependence Current Visit: Yes Status: Acute Qualifiers: Nicotine product type: cigarettes Substance use status: in withdrawal Qualified Code(s): F17.213 - Nicotine dependence, cigarettes, with withdrawal (4) Opioid dependence on agonist therapy Current Visit: Yes Status: Acute (5) Alcohol dependence Current Visit: No Status: Chronic (6) Heroin dependence Current Visit: No Status: Chronic (7) Anxiety and depression Current Visit: No Status: Suspected (8) Drug-induced mood disorder Current Visit: Yes Status: Acute - Initial Treatment Plan Initial Treatment Plan: Ambien 10mg po qhs
[2016-11-27] MEDS ORDERED: METHADONE HCL 10 MG TABLET PO ONE (10:02)
[2016-11-27] MEDS ORDERED: METHADONE 40 MG, METHADONE 10 MG PO ONE (10:30)
[2016-11-27] MEDS: diazePAM 5 MG TABLET PO PRN ×2 (10:39→20:18)
[2016-11-27] MEDS: PRENATAL VITAMINS W/ FOLIC ACID TABLET (FP) PO SCH (10:39)
[2016-11-27] MEDS: TOLNAFTATE 1% CREAM 15 GM TUBE TP SCH ×2 (10:39→22:35)
[2016-11-27] MEDS: NICOTINE 21 MG/24 HOURS TOPICAL PATCH TD SCH (10:40)
[2016-11-27] MEDS ORDERED: METHADONE HCL 10 MG TABLET ONE (10:41)
[2016-11-27] MEDS ORDERED: METHADONE HCL 40 MG DISPERSABLE TABLET ONE (10:41)
[2016-11-27 10:51] LABS: ALBUMIN 3.7 g/dl (3.4-5.0); ANION GAP 9 (8-16); CO2 29 mmol/L (21-32); GLUCOSE,RANDOM 150 mg/dL (74-106)
[2016-11-27 10:53] LABS: ALK PHOS 131 U/L (45-117); BILIRUBIN,TOTAL 0.6 mg/dL (0.2-1.0); COCKROFT - GAULT 170.57; CREATININE 1.1 mg/dL (0.7-1.3); SGOT/AST 57 U/L (15-37); SGPT/ALT 64 U/L (12-78); TOT PROT 7.5 g/dl (6.4-8.2)
[2016-11-27 10:55] LABS: MCH 26.9 pg (25.7-33.7); MCHC 33.9 g/dl (32.0-35.9); MEAN CELL VOLUME 79.4 fl (80-96); MEAN PLT VOLUME 8.9 fl (7.5-11.1); PLATELET COUNT 263 K/MM3 (134-434); WHITE BLOOD COUNT 5.3 K/mm3 (4.0-10.0)
--- NOTE | 2016-11-27 11:14 | PN ---
S CIWA - CIWA Score Nausea/Vomitin Muscle Tremors: 3 Anxiety: 3 Agitation: 3 Paroxysmal Sweats: 1-Minimal Palms Moist Orientation: 0-Oriented Tacttile Disturbances: 1-Very Mild Itch/Numbness Auditory Disturbances: 1-Very Mild Visual Disturbances: 1-Very Mild Sensitivity Headache: 2-Mild CIWA-Ar Total Score: 18 BHS Progress Note (SOAP) Subjective: ALERT,IRRITABLE,ANXIOUS,INTERRUPTED SLEEP,TREMOR,PAIN IN THE BODY Objective: 11/27/16 11:06 Vital Signs Temperature 97.3 F L 11/27/16 09:51 Pulse Rate 82 11/27/16 09:51 Respiratory Rate 16 11/27/16 09:51 Blood Pressure 133/94 11/27/16 09:51 O2 Sat by Pulse Oximetry (%) Laboratory Last Values WBC 5.3 K/mm3 (4.0-10.0) 11/27/16 06:00 RBC 4.68 M/mm3 (4.00-5.60) 11/27/16 06:00 Hgb 12.6 GM/dL (11.7-16.9) 11/27/16 06:00 Hct 37.2 % (35.4-49) 11/27/16 06:00 MCV 79.4 fl (80-96) L 11/27/16 06:00 MCHC 33.9 g/dl (32.0-35.9) 11/27/16 06:00 RDW 14.0 % (11.9-15.9) 11/27/16 06:00 Plt Count 263 K/MM3 (134-434) 11/27/16 06:00 MPV 8.9 fl (7.5-11.1) 11/27/16 06:00 Sodium 138 mmol/L (136-145) 11/27/16 06:00 Potassium 3.8 mmol/L (3.5-5.1) 11/27/16 06:00 Chloride 100 mmol/L (98-107) 11/27/16 06:00 Carbon Dioxide 29 mmol/L (21-32) 11/27/16 06:00 Anion Gap 9 (8-16) 11/27/16 06:00 BUN 14 mg/dL (7-18) D 11/27/16 06:00 Creatinine 1.1 mg/dL (0.7-1.3) 11/27/16 06:00 Creat Clearance w eGFR > 60 (>60) 11/27/16 06:00 Random Glucose 150 mg/dL (74-106) H 11/27/16 06:00 Calcium 9.0 mg/dL (8.5-10.1) 11/27/16 06:00 Total Bilirubin 0.6 mg/dL (0.2-1.0) 11/27/16 06:00 AST 57 U/L (15-37) H D 11/27/16 06:00 ALT 64 U/L (12-78) D 11/27/16 06:00 Alkaline Phosphatase 131 U/L (45-117) H D 11/27/16 06:00 Total Protein 7.5 g/dl (6.4-8.2) 11/27/16 06:00 Albumin 3.7 g/dl (3.4-5.0) 11/27/16 06:00 FATHER HAS HISTORY OF DIABETES IN THE FAMILY NOT HIMSELF REFUSED TO HAVE BGM DONE THE INITIAL BLOOD DRAWN IS NON FASTING FASTING BLOOD GLUCOSE IN AM Assessment: 11/27/16 11:14 WITHDRAWAL SYMPTOM Plan: CONTINUE DETOX
--- NOTE | 2016-11-27 12:33 | EKG ---
Test Reason : Blood Pressure : / mmHG Vent. Rate : 093 BPM Atrial Rate : 093 BPM P-R Int : 152 ms QRS Dur : 078 ms QT Int : 384 ms P-R-T Axes : 059 056 037 degrees QTc Int : 477 ms NORMAL SINUS RHYTHM NORMAL ECG WHEN COMPARED WITH ECG OF 13-OCT-2016 21:45, NO SIGNIFICANT CHANGE WAS FOUND Confirmed by CRISTIN ENG MD ([id number]) on 11/27/2016 12:32:34 PM Referred By: Reginaldo Sosa Confirmed By:CRISTIN ENG MD
[2016-11-27] MEDS: hydrOXYzine PAMOATE 50 MG CAPSULE (FP) PO PRN (12:43)
[2016-11-27] MEDS: ZOLPIDEM TARTRATE 10 MG TABLET (PARK CARE ONLY) PO PRN (22:33)
[2016-11-27] MEDS: THIAMINE HCL 100 MG TABLET (FP) PO SCH (22:33)
[2016-11-28] MEDS ORDERED: METHADONE HCL 40 MG DISPERSABLE TABLET ONE (09:32)
[2016-11-28] MEDS ORDERED: METHADONE HCL 10 MG TABLET ONE (09:33)
--- NOTE | 2016-11-28 09:51 | PN ---
S CIWA - CIWA Score Nausea/Vomitin Muscle Tremors: 3 Anxiety: 3 Agitation: 2 Paroxysmal Sweats: 1-Minimal Palms Moist Orientation: 0-Oriented Tacttile Disturbances: 1-Very Mild Itch/Numbness Auditory Disturbances: 1-Very Mild Visual Disturbances: 1-Very Mild Sensitivity Headache: 2-Mild CIWA-Ar Total Score: 17 BHS Progress Note (SOAP) Subjective: ALERT,IRRITABLE,ANXIOUS,TREMOR,INTERRUPTED SLEEP,CONSTIPATION Objective: 11/28/16 09:50 Vital Signs Temperature 98.1 F 11/28/16 06:06 Pulse Rate 96 H 11/28/16 06:06 Respiratory Rate 20 11/28/16 06:06 Blood Pressure 126/90 11/28/16 06:06 O2 Sat by Pulse Oximetry (%) Assessment: 11/28/16 09:50 WITHDRAWAL SYMPTOM Plan: CONTINUE DETOX
[2016-11-28] MEDS ORDERED: METHADONE HCL 10 MG TABLET PO SCH (10:00)
[2016-11-28] MEDS: TOLNAFTATE 1% CREAM 15 GM TUBE TP SCH ×2 (10:44→23:03)
[2016-11-28] MEDS: diazePAM 5 MG TABLET PO SCH ×2 (10:44→22:37)
[2016-11-28] MEDS: PRENATAL VITAMINS W/ FOLIC ACID TABLET (FP) PO SCH (10:44)
[2016-11-28] MEDS: NICOTINE 21 MG/24 HOURS TOPICAL PATCH TD SCH (10:45)
[2016-11-28] MEDS: METHADONE 40 MG, METHADONE 10 MG PO SCH (10:45)
[2016-11-28] MEDS: DOCUSATE SODIUM 100 MG CAPSULE (FP) PO SCH ×2 (13:39→22:37)
[2016-11-28] MEDS: hydrOXYzine PAMOATE 50 MG CAPSULE (FP) PO PRN ×2 (13:39→17:38)
[2016-11-28] MEDS: SELENIUM SULFIDE 2.5% LOTION 4 OZ. TP SCH (13:40)
[2016-11-28] MEDS: ZOLPIDEM TARTRATE 10 MG TABLET (PARK CARE ONLY) PO PRN (22:38)
[2016-11-28] MEDS: IBUPROFEN 400 MG TABLET (FP) PO PRN (22:39)
[2016-11-28] MEDS: THIAMINE HCL 100 MG TABLET (FP) PO SCH (22:40)
[2016-11-29] MEDS ORDERED: METHADONE HCL 40 MG DISPERSABLE TABLET ONE (04:51)
[2016-11-29] MEDS ORDERED: METHADONE HCL 10 MG TABLET ONE (04:52)
[2016-11-29] MEDS: DOCUSATE SODIUM 100 MG CAPSULE (FP) PO SCH ×3 (08:21→22:33)
[2016-11-29] MEDS: METHADONE 40 MG, METHADONE 10 MG PO SCH (11:09)
[2016-11-29] MEDS: PRENATAL VITAMINS W/ FOLIC ACID TABLET (FP) PO SCH (11:09)
[2016-11-29] MEDS: TOLNAFTATE 1% CREAM 15 GM TUBE TP SCH ×2 (11:10→22:59)
[2016-11-29] MEDS: diazePAM 5 MG TABLET PO SCH ×2 (11:10→22:33)
[2016-11-29] MEDS: SELENIUM SULFIDE 2.5% LOTION 4 OZ. TP SCH (11:13)
[2016-11-29] MEDS: NICOTINE 21 MG/24 HOURS TOPICAL PATCH TD SCH (11:18)
[2016-11-29] MEDS: diazePAM 5 MG TABLET PO PRN (14:04)
[2016-11-29] MEDS: IBUPROFEN 400 MG TABLET (FP) PO PRN (14:18)
--- NOTE | 2016-11-29 16:36 | PN ---
BHS Progress Note (SOAP) Subjective: Sweating, Fatigue, Anxious. Objective: PT. A & O X 2 (DISORIENTED ABOUT DAY / DATE). 11/29/16 16:35 Vital Signs Temperature 97.9 F 11/29/16 14:22 Pulse Rate 94 H 11/29/16 14:22 Respiratory Rate 16 11/29/16 14:22 Blood Pressure 158/97 11/29/16 14:22 O2 Sat by Pulse Oximetry (%) Laboratory Last Values WBC 5.3 K/mm3 (4.0-10.0) 11/27/16 06:00 RBC 4.68 M/mm3 (4.00-5.60) 11/27/16 06:00 Hgb 12.6 GM/dL (11.7-16.9) 11/27/16 06:00 Hct 37.2 % (35.4-49) 11/27/16 06:00 MCV 79.4 fl (80-96) L 11/27/16 06:00 MCHC 33.9 g/dl (32.0-35.9) 11/27/16 06:00 RDW 14.0 % (11.9-15.9) 11/27/16 06:00 Plt Count 263 K/MM3 (134-434) 11/27/16 06:00 MPV 8.9 fl (7.5-11.1) 11/27/16 06:00 Sodium 138 mmol/L (136-145) 11/27/16 06:00 Potassium 3.8 mmol/L (3.5-5.1) 11/27/16 06:00 Chloride 100 mmol/L (98-107) 11/27/16 06:00 Carbon Dioxide 29 mmol/L (21-32) 11/27/16 06:00 Anion Gap 9 (8-16) 11/27/16 06:00 BUN 14 mg/dL (7-18) D 11/27/16 06:00 Creatinine 1.1 mg/dL (0.7-1.3) 11/27/16 06:00 Creat Clearance w eGFR > 60 (>60) 11/27/16 06:00 Random Glucose 150 mg/dL (74-106) H 11/27/16 06:00 Fasting Glucose 104 mg/dL (70-105) 11/28/16 07:00 Calcium 9.0 mg/dL (8.5-10.1) 11/27/16 06:00 Total Bilirubin 0.6 mg/dL (0.2-1.0) 11/27/16 06:00 AST 57 U/L (15-37) H D 11/27/16 06:00 ALT 64 U/L (12-78) D 11/27/16 06:00 Alkaline Phosphatase 131 U/L (45-117) H D 11/27/16 06:00 Total Protein 7.5 g/dl (6.4-8.2) 11/27/16 06:00 Albumin 3.7 g/dl (3.4-5.0) 11/27/16 06:00 RPR Titer Nonreactive (NONREACTIVE) 11/27/16 06:00 LABS NOTED. Assessment: 11/29/16 16:36 WITHDRAWAL SYMPTOMS. Plan: CONTINUE DETOX. ADVISED PATIENT TO FOLLOW-UP WITH [facility] / REHAB MEDICAL PROVIDER AFTER DISCHARGE FROM DETOX FOR GENERAL MEDICAL ASSESSMENT AND FOR ABNORMAL ADMISSION LAB VALUES.
[2016-11-29] MEDS: hydrOXYzine PAMOATE 50 MG CAPSULE (FP) PO PRN (17:21)
[2016-11-29] MEDS: ZOLPIDEM TARTRATE 10 MG TABLET (PARK CARE ONLY) PO PRN (22:33)
[2016-11-29] MEDS: THIAMINE HCL 100 MG TABLET (FP) PO SCH (22:33)
[2016-11-30] MEDS ORDERED: METHADONE HCL 40 MG DISPERSABLE TABLET ONE (09:28)
[2016-11-30] MEDS ORDERED: METHADONE HCL 10 MG TABLET ONE (09:29)
[2016-11-30 09:59] VITALS: BP 159/92; PULSE 102; TEMP 97.3
[2016-11-30] MEDS ORDERED: diazePAM 5 MG TABLET PO SCH (10:00)
[2016-11-30] MEDS: TOLNAFTATE 1% CREAM 15 GM TUBE TP SCH (10:38)
[2016-11-30] MEDS: PRENATAL VITAMINS W/ FOLIC ACID TABLET (FP) PO SCH (10:38)
[2016-11-30] MEDS: NICOTINE 21 MG/24 HOURS TOPICAL PATCH TD SCH (10:39)
[2016-11-30] MEDS: METHADONE 40 MG, METHADONE 10 MG PO SCH (10:39)
[2016-11-30] MEDS: IBUPROFEN 400 MG TABLET (FP) PO PRN (10:43)
--- NOTE | 2016-11-30 13:16 | DS ---
[facility] Detox Discharge Summary Admission Date: 11/26/16 Discharge Date: 11/30/16 - History Present History: Alcohol Dependence, Cannabis Dependence, MMTP Pertinent Past History: GERD Rt. ankle deformity - Physical Exam Results Vital Signs: Vital Signs Temperature 97.3 F L 11/30/16 09:57 Pulse Rate 102 H 11/30/16 09:57 Respiratory Rate 20 11/30/16 09:57 Blood Pressure 159/92 11/30/16 09:57 O2 Sat by Pulse Oximetry (%) Pertinent Admission Physical Exam Findings: Withdrawal sx. Laboratory Last Values WBC 5.3 K/mm3 (4.0-10.0) 11/27/16 06:00 RBC 4.68 M/mm3 (4.00-5.60) 11/27/16 06:00 Hgb 12.6 GM/dL (11.7-16.9) 11/27/16 06:00 Hct 37.2 % (35.4-49) 11/27/16 06:00 MCV 79.4 fl (80-96) L 11/27/16 06:00 MCHC 33.9 g/dl (32.0-35.9) 11/27/16 06:00 RDW 14.0 % (11.9-15.9) 11/27/16 06:00 Plt Count 263 K/MM3 (134-434) 11/27/16 06:00 MPV 8.9 fl (7.5-11.1) 11/27/16 06:00 Sodium 138 mmol/L (136-145) 11/27/16 06:00 Potassium 3.8 mmol/L (3.5-5.1) 11/27/16 06:00 Chloride 100 mmol/L (98-107) 11/27/16 06:00 Carbon Dioxide 29 mmol/L (21-32) 11/27/16 06:00 Anion Gap 9 (8-16) 11/27/16 06:00 BUN 14 mg/dL (7-18) D 11/27/16 06:00 Creatinine 1.1 mg/dL (0.7-1.3) 11/27/16 06:00 Creat Clearance w eGFR > 60 (>60) 11/27/16 06:00 Random Glucose 150 mg/dL (74-106) H 11/27/16 06:00 Fasting Glucose 104 mg/dL (70-105) 11/28/16 07:00 Calcium 9.0 mg/dL (8.5-10.1) 11/27/16 06:00 Total Bilirubin 0.6 mg/dL (0.2-1.0) 11/27/16 06:00 AST 57 U/L (15-37) H D 11/27/16 06:00 ALT 64 U/L (12-78) D 11/27/16 06:00 Alkaline Phosphatase 131 U/L (45-117) H D 11/27/16 06:00 Total Protein 7.5 g/dl (6.4-8.2) 11/27/16 06:00 Albumin 3.7 g/dl (3.4-5.0) 11/27/16 06:00 RPR Titer Nonreactive (NONREACTIVE) 11/27/16 06:00 labs noted - Treatment Hospital Course: Detox Protocol Followed, Detoxed Safely, Responded well, Discharged Condition Good, Rehab Referral Accepted Patient has Accepted a Rehab Referral to: [facility] - Medication Discharge Medications: Ambulatory Orders Zolpidem Tartrate [Ambien] 10 mg PO HS PRN #14 tab MDD 10 11/27/16 - Diagnosis (1) Alcohol dependence with uncomplicated withdrawal Status: Acute (2) Cannabis dependence Status: Acute (3) Nicotine dependence Status: Acute Qualifiers: Nicotine product type: cigarettes Substance use status: in withdrawal Qualified Code(s): F17.213 - Nicotine dependence, cigarettes, with withdrawal (4) GERD (gastroesophageal reflux disease) Status: Chronic Qualifiers: Esophagitis presence: without esophagitis Qualified Code(s): K21.9 - Gastro-esophageal reflux disease without esophagitis (5) Right ankle joint deformity Status: Chronic (6) Opioid dependence on agonist therapy Status: Acute - AMA Did Patient Leave Against Medical Advice: No
== END 2016-11-30 12:05 | disposition other institution (70) | DRG 773 ==
LOC: YASAS 13:27 → Y6N 16:56
PROVIDERS: ADMIT Internal Medicine Addiction Medicine; ATTEND Internal Medicine Addiction Medicine
PROC: HZ2ZZZZ Detoxification Services for Substance Abuse Treatment (ICD-10-PCS; principal; 2016-11-26)
DX: F10.230 Alcohol dependence with withdrawal, uncomplicated (principal); F13.20 Sedative, hypnotic or anxiolytic dependence, uncomplicated; F11.20 Opioid dependence, uncomplicated; F12.20 Cannabis dependence, uncomplicated; F17.213 Nicotine dependence, cigarettes, with withdrawal; F19.24 Other psychoactive substance dependence with psychoactive substance-induced mood disorder; F41.8 Other specified anxiety disorders; K21.9 Gastro-esophageal reflux disease without esophagitis; R59.9 Enlarged lymph nodes, unspecified; Z86.2 Personal history of diseases of the blood and blood-forming organs and certain disorders involving the immune mechanism
CPT/HCPCS: 36415; 80053; 82947; 85027; 86593; 93005; 93010

== ENCOUNTER 2016-11-30 12:17 | Inpatient (IN) | payer OTHER ==
--- NOTE | 2016-11-30 13:18 | HP ---
[facility] Rehab Assess/Revision - Admission History Admitted to Rehab from: [facility] [place] Date of Admission to Rehab: 11/30/16 - Vital signs Vital Signs: Last Vital Signs Temp Pulse Resp BP Pulse Ox 98.1 F 97 H 16 137/92 11/30/16 13:19 11/30/16 13:19 11/30/16 13:19 11/30/16 13:19 - Findings Detox History & Physical reviewed: Yes Concur with findings: Yes
[2016-11-30] MEDS ORDERED: ACETAMINOPHEN 325 MG TABLET (FP) PO PRN (13:19)
[2016-11-30] MEDS ORDERED: LOPERAMIDE HCL 2 MG CAPSULE PO PRN (13:19)
[2016-11-30] MEDS ORDERED: guaiFENesin/D-METHORPHAN HB 10 ML UNIT-DOSE CUPS PO PRN (13:19)
[2016-11-30] MEDS ORDERED: MAG HYDROX/AL HYDROX/SIMETH 30 ML UNIT-DOSE CUP PO PRN (13:19)
[2016-11-30] MEDS ORDERED: NICOTINE POLACRILEX 2 MG GUM BUC PRN (13:19)
[2016-11-30] MEDS ORDERED: MAGNESIUM CITRATE 300 ML BOTTLE PO PRN (13:19)
[2016-11-30] MEDS ORDERED: P-EPHED 60MG/TRIPROLIDI 2.5MG TABLET PO PRN (13:19)
[2016-11-30] MEDS ORDERED: MENTHOL/PHENOL 1 EACH UD MM PRN (13:19)
[2016-11-30] MEDS: diphenhydrAMINE HCL 50 MG CAPSULE PO PRN (21:19)
[2016-11-30] MEDS: THIAMINE HCL 100 MG TABLET (FP) PO SCH (21:19)
[2016-12-01] MEDS ORDERED: METHADONE HCL 10 MG TABLET PO SCH (06:00)
[2016-12-01] MEDS ORDERED: METHADONE HCL 40 MG DISPERSABLE TABLET ONE (06:05)
[2016-12-01] MEDS ORDERED: METHADONE HCL 10 MG TABLET ONE (06:05)
[2016-12-01] MEDS: METHADONE 40 MG, METHADONE 10 MG PO SCH (06:13)
[2016-12-01] MEDS: PRENATAL VITAMINS W/ FOLIC ACID TABLET (FP) PO SCH (09:49)
[2016-12-01] MEDS: NICOTINE 21 MG/24 HOURS TOPICAL PATCH TD SCH (09:50)
--- NOTE | 2016-12-01 10:52 | HP ---
Psychiatrist Admission - Data Date of interview: 12/01/16 Admission source: [address] [place] [address] Identifying data: This is the third admission to [address] [place] [address] rehabilitation for this 36 yo single childless,domiciled,empoyed as a cook. Medical History: Obesity. Psychiatric History: Patient reports some anxiety,mood instability at times.One psychiatric hospitalization to [facility] in 2001.Reports being dx with Bipolar disorder,but disegree with this diagnosis.Patient states that the fact that his mother was dx with Bipolar disorder doesnt mean that he has it too.Patient has no psychiatric aftercare,not on any medications at present. Physical/Sexual Abuse/Trauma History: denies Vital Signs: Vital Signs - 24 hr 11/30/16 12/01/16 12/01/16 13:19 00:30 03:30 Temperature 98.1 F Pulse Rate 97 H Respiratory 16 18 18 Rate Blood Pressure 137/92 12/01/16 06:51 Temperature 97.4 F L Pulse Rate 85 Respiratory 18 Rate Blood Pressure 149/79 Allergies/Adverse Reactions: Allergies Allergy/AdvReac Type Severity Reaction Status Date / Time Penicillins Allergy Severe Hives Verified 10/13/16 21:13 fish derived Allergy Intermediate Swelling Verified 11/26/16 17:33 pregabalin [From Lyrica] Allergy Intermediate Swelling Verified 11/26/16 16:42 shellfish derived Allergy Intermediate Swelling Verified 11/26/16 17:33 Seafood Allergy Intermediate Swelling Uncoded 11/26/16 16:43 Date of last physical exam: 11/26/16 Concur with the findings of this exam: Yes Mental Status Exam - Mental Status Exam Alert and Oriented to: Time, Place, Person Cognitive Function: Grossly Intact Patient Appearance: Well Groomed Mood: Euthymic Affect: Mood Congruent Patient Behavior: Cooperative Speech Pattern: Clear Voice Loudness: Normal Thought Process: Goal Oriented Thought Disorder: Not Present Hallucinations: Denies Suicidal Ideation: Denies Homicidal Ideation: Denies Insight/Judgement: Fair Sleep: Fair Appetite: Good Muscle strength/Tone: Normal Gait/Station: Normal Psychiatric Findings - Problem List ([place] 1, 2,3) (1) Cannabis dependence Current Visit: Yes Status: Chronic (2) Chronic cellulitis Current Visit: Yes Status: Chronic Comment: ELEVATION RESTING (3) Drug-induced mood disorder Current Visit: Yes Status: Chronic (4) Nicotine dependence Current Visit: Yes Status: Chronic Qualifiers: (5) Opioid dependence on agonist therapy Current Visit: Yes Status: Chronic (6) Alcohol dependence Current Visit: Yes Status: Chronic (7) GERD (gastroesophageal reflux disease) Current Visit: Yes Status: Chronic Qualifiers: - Initial Treatment Plan Initial Treatment Plan: Vistaril 50 mg po QID prn for anxiety.Will monitor progress.
[2016-12-01] MEDS: DOCUSATE SODIUM 100 MG CAPSULE (FP) PO SCH ×2 (13:54→21:25)
[2016-12-01] MEDS: CYCLOBENZAPRINE HCL 10 MG TABLET (FP) PO PRN ×2 (13:55→21:26)
[2016-12-01] MEDS: THIAMINE HCL 100 MG TABLET (FP) PO SCH (21:25)
[2016-12-01] MEDS: diphenhydrAMINE HCL 50 MG CAPSULE PO PRN (21:25)
[2016-12-02] MEDS ORDERED: METHADONE HCL 10 MG TABLET ONE (03:55)
[2016-12-02] MEDS ORDERED: METHADONE HCL 40 MG DISPERSABLE TABLET ONE (03:55)
[2016-12-02] MEDS: METHADONE 40 MG, METHADONE 10 MG PO SCH (05:57)
[2016-12-02] MEDS: DOCUSATE SODIUM 100 MG CAPSULE (FP) PO SCH ×3 (05:57→21:20)
[2016-12-02] MEDS: PRENATAL VITAMINS W/ FOLIC ACID TABLET (FP) PO SCH (10:15)
[2016-12-02] MEDS: NICOTINE 21 MG/24 HOURS TOPICAL PATCH TD SCH (10:15)
[2016-12-02] MEDS: CYCLOBENZAPRINE HCL 10 MG TABLET (FP) PO PRN (10:16)
[2016-12-02] MEDS: TOLNAFTATE 1% CREAM 15 GM TUBE TP SCH (21:20)
[2016-12-02] MEDS: THIAMINE HCL 100 MG TABLET (FP) PO SCH (21:20)
[2016-12-02] MEDS: diphenhydrAMINE HCL 50 MG CAPSULE PO PRN (21:20)
[2016-12-03] MEDS ORDERED: METHADONE HCL 40 MG DISPERSABLE TABLET ONE (06:18)
[2016-12-03] MEDS ORDERED: METHADONE HCL 10 MG TABLET ONE (06:18)
[2016-12-03] MEDS: METHADONE 40 MG, METHADONE 10 MG PO SCH (06:19)
[2016-12-03] MEDS: DOCUSATE SODIUM 100 MG CAPSULE (FP) PO SCH ×3 (06:19→21:18)
[2016-12-03] MEDS: IBUPROFEN 400 MG TABLET (FP) PO PRN (09:48)
[2016-12-03] MEDS: PRENATAL VITAMINS W/ FOLIC ACID TABLET (FP) PO SCH (09:48)
[2016-12-03] MEDS: NICOTINE 21 MG/24 HOURS TOPICAL PATCH TD SCH (09:49)
[2016-12-03] MEDS: TOLNAFTATE 1% CREAM 15 GM TUBE TP SCH ×2 (09:52→21:18)
[2016-12-03] MEDS ORDERED: SELENIUM SULFIDE 2.5% LOTION 4 OZ. TP SCH (10:00)
[2016-12-03] MEDS: diphenhydrAMINE HCL 50 MG CAPSULE PO PRN (21:18)
[2016-12-03] MEDS: THIAMINE HCL 100 MG TABLET (FP) PO SCH (21:18)
[2016-12-03] MEDS: CYCLOBENZAPRINE HCL 10 MG TABLET (FP) PO PRN (21:20)
[2016-12-04] MEDS ORDERED: METHADONE HCL 40 MG DISPERSABLE TABLET ONE (06:10)
[2016-12-04] MEDS ORDERED: METHADONE HCL 10 MG TABLET ONE (06:10)
[2016-12-04] MEDS: DOCUSATE SODIUM 100 MG CAPSULE (FP) PO SCH ×3 (06:10→21:20)
[2016-12-04] MEDS: METHADONE 40 MG, METHADONE 10 MG PO SCH (06:11)
[2016-12-04] MEDS: SELENIUM SULFIDE 2.5% LOTION 4 OZ. TP SCH (06:11)
[2016-12-04] MEDS: NICOTINE 21 MG/24 HOURS TOPICAL PATCH TD SCH (10:05)
[2016-12-04] MEDS: PRENATAL VITAMINS W/ FOLIC ACID TABLET (FP) PO SCH (10:06)
[2016-12-04] MEDS: IBUPROFEN 400 MG TABLET (FP) PO PRN (10:06)
[2016-12-04] MEDS: TOLNAFTATE 1% CREAM 15 GM TUBE TP SCH ×2 (10:07→21:21)
[2016-12-04] MEDS: hydrOXYzine PAMOATE 50 MG CAPSULE (FP) PO PRN (14:12)
[2016-12-04] MEDS: THIAMINE HCL 100 MG TABLET (FP) PO SCH (21:20)
[2016-12-04] MEDS: diphenhydrAMINE HCL 50 MG CAPSULE PO PRN (21:20)
[2016-12-04] MEDS: CYCLOBENZAPRINE HCL 10 MG TABLET (FP) PO PRN (21:20)
[2016-12-05] MEDS ORDERED: METHADONE HCL 40 MG DISPERSABLE TABLET ONE (03:37)
[2016-12-05] MEDS ORDERED: METHADONE HCL 10 MG TABLET ONE (03:37)
[2016-12-05] MEDS: DOCUSATE SODIUM 100 MG CAPSULE (FP) PO SCH ×3 (06:11→21:17)
[2016-12-05] MEDS: METHADONE 40 MG, METHADONE 10 MG PO SCH (06:11)
[2016-12-05] MEDS: SELENIUM SULFIDE 2.5% LOTION 4 OZ. TP SCH (06:13)
[2016-12-05] MEDS: NICOTINE 21 MG/24 HOURS TOPICAL PATCH TD SCH (09:50)
[2016-12-05] MEDS: PRENATAL VITAMINS W/ FOLIC ACID TABLET (FP) PO SCH (09:50)
[2016-12-05] MEDS: IBUPROFEN 400 MG TABLET (FP) PO PRN (09:50)
[2016-12-05] MEDS: TOLNAFTATE 1% CREAM 15 GM TUBE TP SCH ×2 (09:51→22:04)
--- NOTE | 2016-12-05 14:43 | PN ---
[facility] Progress Note Note: spoke with dr myers at patient's methadone program agreed to increase methadone to 60 mgs/day
[2016-12-05] MEDS: CYCLOBENZAPRINE HCL 10 MG TABLET (FP) PO PRN (21:17)
[2016-12-05] MEDS: THIAMINE HCL 100 MG TABLET (FP) PO SCH (21:17)
[2016-12-05] MEDS: diphenhydrAMINE HCL 50 MG CAPSULE PO PRN (21:17)
[2016-12-06] MEDS ORDERED: METHADONE HCL 40 MG DISPERSABLE TABLET PO SCH (06:00)
[2016-12-06] MEDS ORDERED: METHADONE HCL 10 MG TABLET ONE (06:07)
[2016-12-06] MEDS ORDERED: METHADONE HCL 40 MG DISPERSABLE TABLET ONE (06:07)
[2016-12-06] MEDS: METHADONE 40 MG, METHADONE 20 MG PO SCH (06:26)
[2016-12-06] MEDS: DOCUSATE SODIUM 100 MG CAPSULE (FP) PO SCH ×3 (06:26→21:15)
[2016-12-06] MEDS: SELENIUM SULFIDE 2.5% LOTION 4 OZ. TP SCH (06:27)
[2016-12-06] MEDS: NICOTINE 21 MG/24 HOURS TOPICAL PATCH TD SCH (10:00)
[2016-12-06] MEDS: PRENATAL VITAMINS W/ FOLIC ACID TABLET (FP) PO SCH (10:00)
[2016-12-06] MEDS: TOLNAFTATE 1% CREAM 15 GM TUBE TP SCH ×2 (10:01→21:15)
[2016-12-06] MEDS: CYCLOBENZAPRINE HCL 10 MG TABLET (FP) PO PRN (10:02)
[2016-12-06] MEDS: hydrOXYzine PAMOATE 50 MG CAPSULE (FP) PO PRN (10:02)
[2016-12-06] MEDS: MAGNESIUM HYDROX 2400MG/30ML ORAL SUSPENSION 30 ML CUP PO PRN (21:15)
[2016-12-06] MEDS: diphenhydrAMINE HCL 50 MG CAPSULE PO PRN (21:15)
[2016-12-06] MEDS: THIAMINE HCL 100 MG TABLET (FP) PO SCH (21:15)
[2016-12-07] MEDS ORDERED: METHADONE HCL 10 MG TABLET ONE (03:24)
[2016-12-07] MEDS ORDERED: METHADONE HCL 40 MG DISPERSABLE TABLET ONE (03:25)
[2016-12-07] MEDS: DOCUSATE SODIUM 100 MG CAPSULE (FP) PO SCH ×3 (06:38→21:13)
[2016-12-07] MEDS: METHADONE 40 MG, METHADONE 20 MG PO SCH (06:38)
[2016-12-07] MEDS: SELENIUM SULFIDE 2.5% LOTION 4 OZ. TP SCH (06:40)
[2016-12-07] MEDS: PRENATAL VITAMINS W/ FOLIC ACID TABLET (FP) PO SCH (09:56)
[2016-12-07] MEDS: NICOTINE 21 MG/24 HOURS TOPICAL PATCH TD SCH (09:56)
[2016-12-07] MEDS: IBUPROFEN 400 MG TABLET (FP) PO PRN (09:57)
[2016-12-07] MEDS: TOLNAFTATE 1% CREAM 15 GM TUBE TP SCH ×2 (09:57→21:13)
[2016-12-07] MEDS: CYCLOBENZAPRINE HCL 10 MG TABLET (FP) PO PRN ×2 (09:59→21:14)
[2016-12-07] MEDS: MAGNESIUM HYDROX 2400MG/30ML ORAL SUSPENSION 30 ML CUP PO PRN (14:28)
[2016-12-07] MEDS: THIAMINE HCL 100 MG TABLET (FP) PO SCH (21:13)
[2016-12-07] MEDS: diphenhydrAMINE HCL 50 MG CAPSULE PO PRN (21:14)
[2016-12-08] MEDS ORDERED: METHADONE HCL 10 MG TABLET ONE (03:21)
[2016-12-08] MEDS ORDERED: METHADONE HCL 40 MG DISPERSABLE TABLET ONE (03:22)
[2016-12-08] MEDS: METHADONE 40 MG, METHADONE 20 MG PO SCH (06:00)
[2016-12-08] MEDS: DOCUSATE SODIUM 100 MG CAPSULE (FP) PO SCH (06:00)
[2016-12-08] MEDS: SELENIUM SULFIDE 2.5% LOTION 4 OZ. TP SCH (06:01)
[2016-12-08] MEDS: NICOTINE 21 MG/24 HOURS TOPICAL PATCH TD SCH (10:10)
[2016-12-08] MEDS: PRENATAL VITAMINS W/ FOLIC ACID TABLET (FP) PO SCH (10:10)
[2016-12-08] MEDS: TOLNAFTATE 1% CREAM 15 GM TUBE TP SCH ×2 (10:11→22:02)
[2016-12-08] MEDS: IBUPROFEN 400 MG TABLET (FP) PO PRN (10:12)
[2016-12-08] MEDS ORDERED: MAGNESIUM CITRATE 300 ML BOTTLE PO ONE (12:13)
[2016-12-08] MEDS: hydrOXYzine PAMOATE 50 MG CAPSULE (FP) PO PRN (14:10)
[2016-12-08] MEDS: CYCLOBENZAPRINE HCL 10 MG TABLET (FP) PO PRN (21:20)
[2016-12-08] MEDS: THIAMINE HCL 100 MG TABLET (FP) PO SCH (21:20)
[2016-12-08] MEDS: diphenhydrAMINE HCL 50 MG CAPSULE PO PRN (21:20)
[2016-12-09] MEDS ORDERED: METHADONE HCL 40 MG DISPERSABLE TABLET ONE (03:31)
[2016-12-09] MEDS ORDERED: METHADONE HCL 10 MG TABLET ONE (03:31)
[2016-12-09] MEDS: METHADONE 40 MG, METHADONE 20 MG PO SCH (06:13)
[2016-12-09] MEDS: SELENIUM SULFIDE 2.5% LOTION 4 OZ. TP SCH (06:14)
[2016-12-09] MEDS: NICOTINE 21 MG/24 HOURS TOPICAL PATCH TD SCH (10:09)
[2016-12-09] MEDS: IBUPROFEN 400 MG TABLET (FP) PO PRN (10:09)
[2016-12-09] MEDS: PRENATAL VITAMINS W/ FOLIC ACID TABLET (FP) PO SCH (10:10)
[2016-12-09] MEDS: TOLNAFTATE 1% CREAM 15 GM TUBE TP SCH ×2 (10:10→21:24)
[2016-12-09] MEDS: THIAMINE HCL 100 MG TABLET (FP) PO SCH (21:23)
[2016-12-09] MEDS: diphenhydrAMINE HCL 50 MG CAPSULE PO PRN (21:23)
[2016-12-09] MEDS: CYCLOBENZAPRINE HCL 10 MG TABLET (FP) PO PRN (21:24)
[2016-12-10] MEDS ORDERED: METHADONE HCL 10 MG TABLET ONE (03:24)
[2016-12-10] MEDS ORDERED: METHADONE HCL 40 MG DISPERSABLE TABLET ONE (03:25)
[2016-12-10] MEDS: METHADONE 40 MG, METHADONE 20 MG PO SCH (06:17)
[2016-12-10] MEDS: SELENIUM SULFIDE 2.5% LOTION 4 OZ. TP SCH (06:18)
[2016-12-10] MEDS: NICOTINE 21 MG/24 HOURS TOPICAL PATCH TD SCH (09:50)
[2016-12-10] MEDS: PRENATAL VITAMINS W/ FOLIC ACID TABLET (FP) PO SCH (09:50)
[2016-12-10] MEDS: TOLNAFTATE 1% CREAM 15 GM TUBE TP SCH ×2 (09:50→21:14)
[2016-12-10] MEDS: IBUPROFEN 400 MG TABLET (FP) PO PRN (09:51)
[2016-12-10] MEDS: POLYETHYLENE GLYCOL 3350 119 GM BTL PO SCH (09:53)
[2016-12-10] MEDS: CYCLOBENZAPRINE HCL 10 MG TABLET (FP) PO PRN (21:14)
[2016-12-10] MEDS: diphenhydrAMINE HCL 50 MG CAPSULE PO PRN (21:15)
[2016-12-10] MEDS: THIAMINE HCL 100 MG TABLET (FP) PO SCH (21:15)
[2016-12-11] MEDS ORDERED: METHADONE HCL 10 MG TABLET ONE (05:45)
[2016-12-11] MEDS ORDERED: METHADONE HCL 40 MG DISPERSABLE TABLET ONE (05:45)
[2016-12-11] MEDS: SELENIUM SULFIDE 2.5% LOTION 4 OZ. TP SCH (06:20)
[2016-12-11] MEDS: METHADONE 40 MG, METHADONE 20 MG PO SCH (06:20)
[2016-12-11] MEDS: PRENATAL VITAMINS W/ FOLIC ACID TABLET (FP) PO SCH (10:12)
[2016-12-11] MEDS: POLYETHYLENE GLYCOL 3350 119 GM BTL PO SCH (10:12)
[2016-12-11] MEDS: IBUPROFEN 400 MG TABLET (FP) PO PRN (10:13)
[2016-12-11] MEDS: NICOTINE 21 MG/24 HOURS TOPICAL PATCH TD SCH (10:15)
[2016-12-11] MEDS: TOLNAFTATE 1% CREAM 15 GM TUBE TP SCH ×2 (10:16→21:18)
[2016-12-11] MEDS: diphenhydrAMINE HCL 50 MG CAPSULE PO PRN (21:18)
[2016-12-11] MEDS: THIAMINE HCL 100 MG TABLET (FP) PO SCH (21:18)
[2016-12-11] MEDS: CYCLOBENZAPRINE HCL 10 MG TABLET (FP) PO PRN (21:18)
[2016-12-12] MEDS ORDERED: METHADONE HCL 40 MG DISPERSABLE TABLET ONE (05:59)
[2016-12-12] MEDS ORDERED: METHADONE HCL 10 MG TABLET ONE (05:59)
[2016-12-12] MEDS: METHADONE 40 MG, METHADONE 20 MG PO SCH (06:10)
[2016-12-12] MEDS: IBUPROFEN 400 MG TABLET (FP) PO PRN (06:10)
[2016-12-12] MEDS: SELENIUM SULFIDE 2.5% LOTION 4 OZ. TP SCH (06:12)
[2016-12-12] MEDS: PRENATAL VITAMINS W/ FOLIC ACID TABLET (FP) PO SCH (11:02)
[2016-12-12] MEDS: TOLNAFTATE 1% CREAM 15 GM TUBE TP SCH ×2 (11:02→21:37)
[2016-12-12] MEDS: POLYETHYLENE GLYCOL 3350 119 GM BTL PO SCH (11:02)
[2016-12-12] MEDS: NICOTINE 21 MG/24 HOURS TOPICAL PATCH TD SCH (11:02)
[2016-12-12] MEDS: CYCLOBENZAPRINE HCL 10 MG TABLET (FP) PO PRN (21:20)
[2016-12-12] MEDS: THIAMINE HCL 100 MG TABLET (FP) PO SCH (21:20)
[2016-12-12] MEDS: diphenhydrAMINE HCL 50 MG CAPSULE PO PRN (21:20)
[2016-12-12] MEDS: MAGNESIUM HYDROX 2400MG/30ML ORAL SUSPENSION 30 ML CUP PO PRN (21:21)
[2016-12-13] MEDS ORDERED: METHADONE HCL 40 MG DISPERSABLE TABLET ONE (04:20)
[2016-12-13] MEDS ORDERED: METHADONE HCL 10 MG TABLET ONE (04:20)
[2016-12-13] MEDS: METHADONE 40 MG, METHADONE 20 MG PO SCH (06:39)
[2016-12-13] MEDS: SELENIUM SULFIDE 2.5% LOTION 4 OZ. TP SCH (06:39)
[2016-12-13 07:06] VITALS: BP 157/88; PULSE 81; TEMP 97.2
[2016-12-13] MEDS: POLYETHYLENE GLYCOL 3350 119 GM BTL PO SCH (09:41)
[2016-12-13] MEDS: NICOTINE 21 MG/24 HOURS TOPICAL PATCH TD SCH (09:41)
[2016-12-13] MEDS: TOLNAFTATE 1% CREAM 15 GM TUBE TP SCH (09:42)
[2016-12-13] MEDS: PRENATAL VITAMINS W/ FOLIC ACID TABLET (FP) PO SCH (09:42)
--- NOTE | 2016-12-13 22:59 | PN ---
S Progress Note Note: patient was administratively discharged this morning due to disruptive disrespectful behavior on the unit, please see medical staff notes
== END 2016-12-13 11:15 | disposition home or self-care (01) | DRG 772 ==
LOC: YASAS 12:17 → Y5N 12:20
PROVIDERS: ADMIT Psychiatry & Neurology Psychiatry; ATTEND Psychiatry & Neurology Psychiatry
PROC: HZ42ZZZ Group Counseling for Substance Abuse Treatment, Cognitive-Behavioral (ICD-10-PCS; principal; 2016-12-13)
DX: F11.20 Opioid dependence, uncomplicated (principal); F10.230 Alcohol dependence with withdrawal, uncomplicated; F12.20 Cannabis dependence, uncomplicated; F17.210 Nicotine dependence, cigarettes, uncomplicated; F19.24 Other psychoactive substance dependence with psychoactive substance-induced mood disorder; F32.9 Major depressive disorder, single episode, unspecified; K21.9 Gastro-esophageal reflux disease without esophagitis